=== PATIENT | female | born 1955 | race Caucasian/White ===

== ENCOUNTER 2018-05-23 11:49 | Outpatient (CLI) | payer OTHER ==
[2018-05-23 12:41] LABS: Hemoglobin 14.2 g/dL (12.0-16.0); Mean Corpuscular HGB CONC 34.2 g/dL (32.0-36.0); Mean Corpuscular Hemoglobin 31.1 pg (27.0-31.0); Mean Platelet Volume 6.8 fL (7.4-10.4); Platelet Count 331 thou/uL (130-400); RBC Distribution Width 11.8 % (11.5-14.5); Red Blood Cell (RBC) Count 4.56 mill/uL (4.20-5.40); White Blood Cell (WBC) Count 9.1 thou/uL (4.8-10.8)
[2018-05-23 13:02] LABS: ALT (SGPT) 15 U/L (8-55); AST (SGOT) 15 U/L (5-34); Albumin 4.4 g/dL (3.4-4.8); Alkaline Phosphatase 70 U/L (40-150); Anion Gap 12 mmol/L (10-20); BUN (Urea Nitrogen) 13 mg/dL (9.8-20.1); Bilirubin, Total 0.5 mg/dL (0.2-1.2); Calc. Creatinine Clearance 0 mL/min (70-130); Calcium 9.6 mg/dL (7.8-10.44); Carbon Dioxide 26 mmol/L (23-31); Chloride 106 mmol/L (98-107); Estimated GFR-MDRD 71; Globulin 2.8 g/dL (2.4-3.5); Glucose 82 mg/dL (80-115); Potassium 3.8 mmol/L (3.5-5.1); Protein, Total 7.2 g/dL (6.0-8.3); Sodium 140 mmol/L (136-145)
== END 2018-05-23 11:50 | disposition home or self-care (01) ==
LOC: LABBT 11:49
PROVIDERS: ATTEND Obstetrics & Gynecology
DX: Z01.818 Encounter for other preprocedural examination (principal); N95.0 Postmenopausal bleeding
CPT/HCPCS: 80053; 85027; 86850; 86900; 86901

== ENCOUNTER 2018-05-26 10:13 | Day surgery (SDC) | payer OTHER ==
[2018-05-23 12:42] VITALS: BMI 33.5
[2018-05-26] MEDS ORDERED: Famotidine/PF 20 mg/2ml Vial ONE (10:50)
[2018-05-26] MEDS ORDERED: Gabapentin 300 MG CAP ONE (10:50)
[2018-05-26] MEDS ORDERED: CeleCOXIB 100 MG CAP ONE (10:50)
[2018-05-26] MEDS ORDERED: Fentanyl 100 MCG/2 ML VIAL ONE (11:52)
[2018-05-26] MEDS ORDERED: Midazolam HCl 2 mg/2 ml Vial ONE (11:53)
[2018-05-26] MEDS ORDERED: PROPOFOL 200 MG/20 ML VIAL ONE (14:39)
[2018-05-26] MEDS ORDERED: PROVENTIL INHALER 6.7 G (200 INHALATIONS) ONE (14:39)
[2018-05-26] MEDS ORDERED: Ketorolac Tromethamine 30 MG/ML VIAL ONE (14:39)
[2018-05-26] MEDS ORDERED: Lidocaine 1% PF 5 ML VIAL ONE (14:39)
[2018-05-26] MEDS ORDERED: Ondansetron HCl/PF 4 MG/2 ML Vial ONE (14:39)
--- NOTE | 2018-05-27 00:03 | OP ---
PREOPERATIVE DIAGNOSIS: Postmenopausal uterine bleeding prior endometrial ablation. POSTOPERATIVE DIAGNOSES: Postmenopausal uterine bleeding prior endometrial ablation, intrauterine fi broids and worrisome looking polypoid lesion in the upper endometrial cavity. SURGEON: Farhan Jaramillo MD CUFFING MACHINE OPERATOR: Pilar Lara MD ANESTHESIA: General LMA anesthesia by Mateo Madrid CRNA (see his notes for details). OPERATIVE FINDINGS: Included two moderate-sized partially exposed mid-uterine segment myomas and abo ve that in the fundus on the right anterior side of the uterine cavity was a vascular appearing 1 to 1.5-cm polypoid mass that was excised with the TruClear device. ROCEDURES: Hysteroscopy, dilation and curettage, and TruClear removal of the masses and uterine cavi ties. OPERATIVE COMPLICATIONS: None. ESTIMATED BLOOD LOSS: Approximately 100 mL. The patient was taken to the operating room where she was prepped and draped and after she had been g iven a general anesthetic, her bladder was drained. [place] speculum was placed in the vagina and ce rvix was grasped with single-tooth tenaculum. The uterus was sounded to 8-1/2 cm. The dilators were fairly easy to pass despite a previous endomet rial ablation and she was initially dilated up to a dilator size of 16 Cholo dilator and the 6 mm Daya lear hysteroscope was inserted using saline and hysteroscopy was performed. The masses were determin ed to need removal and the non-oscillating router tip on the TruClear device was used to excise the p olypoid mass and portions of the fibroids. Because the mass was still freely floating in the uterine cavity, a curettage after the cervix was dilated up to 20 dilator and then uterine grasping forceps were used to remove the mass. Visualization revealed there was minimal bleeding and essentially all of the polypoid masses were removed and a good portion of the fibroids were removed. The patient was taken to the recovery room having tolerated the procedure and anesthesia well.
--- NOTE | 2018-05-27 03:28 | DIS ---
See operative note for details and pathology for further details. Her preoperative history and physi maria m in the chart from our office. HOSPITAL COURSE: Basically, this is a 62-year-old multipara had had an endometrial ablation several years before and had not had menses since her mid 50s and then started bleeding moderately he avily about a month ago. She was given a Provera while waiting on a biopsy. Biopsy came back indete rminate due to the fact that she had scarring from her previous endometrial ablation and she was admi tted for D&C and hysteroscopy for definitive diagnosis and treatment of her condition. On 05/26/2018, the patient underwent a general anesthetic and hysteroscopic resection of worrisome lo oking polypoid mass in the fundus of the uterus and some portions of her benign appearing fibroids in the lower uterine segment. Dr. Lara was there to help me as there was concern of perforation and difficulty in doing the procedure because of previous endometrial ablation. The D&C ultimately was c arried out further with using a curette to get the mass out completely that was reinspected, there wa s minimal bleeding, she was taken to the recovery room. Postoperatively, she did well. Within appro ximately 2-1/2 hours, she was ready for discharge. She had minimal bleeding, had minimal pain and wa s not nauseated. Pathology report is pending. IMPRESSION: Postmenopausal bleeding, probably due to either benign or malignant endometrial polyp an d endometrial fibroids are contributing factor. PLAN: Discharge the patient home with warnings and instructions, both written and verbal to her husb and and herself. She has a video photograph. She has followup appointment to see me in about 2-1/2 weeks. She has been given instructions on how to get in touch with somebody after hours or on the we ekends if she has any complications of fever, bleeding, and pain.
== END 2018-05-26 15:43 | disposition home or self-care (01) ==
LOC: SDC 10:13
PROVIDERS: ATTEND Obstetrics & Gynecology
PROC: 0UB98ZZ Excision of Uterus, Via Natural or Artificial Opening Endoscopic (ICD-10-PCS; principal; 2018-05-26)
DX: C54.3 Malignant neoplasm of fundus uteri (principal); D25.9 Leiomyoma of uterus, unspecified; Z79.51 Long term (current) use of inhaled steroids; Z79.899 Other long term (current) drug therapy; Z88.1 Allergy status to other antibiotic agents; Z88.8 Allergy status to other drugs, medicaments and biological substances; Z98.890 Other specified postprocedural states
CPT/HCPCS: 88305; 88341; 88342; 88360; J1885; J2001; J2250; J2405; J2704; J3010; S0028

== ENCOUNTER 2018-06-09 12:32 | Outpatient (CLI) | payer OTHER ==
[2018-06-09] MEDS ORDERED: Iopamidol 370 76% 100 ML VIAL ONE (12:56)
== END 2018-06-09 12:33 | disposition home or self-care (01) ==
LOC: BICCT 12:32
PROVIDERS: ATTEND Obstetrics & Gynecology Gynecologic Oncology
DX: C54.1 Malignant neoplasm of endometrium (principal); K80.50 Calculus of bile duct without cholangitis or cholecystitis without obstruction
CPT/HCPCS: 71270; 74178